=== PATIENT | female | born 1975 | race Caucasian/White ===

== ENCOUNTER 2023-03-07 12:04 | Emergency (ER) | payer BC, OTHER ==
[~2023-03-07] VITALS: Ht 162.6 cm; Wt 54.4 kg
[2023-03-07 12:12] VITALS: O2SAT 98
[2023-03-07] MEDS ORDERED: MOXI3DRO LEFTEYE (12:53)
[2023-03-07] MEDS ORDERED: SULF1TAB48 PO (12:53)
[2023-03-07] MEDS ORDERED: FLUC100T8 PO (13:04)
== END 2023-03-07 13:06 | disposition home or self-care (01) ==
LOC: ER 12:04
DX: L03.213 Periorbital cellulitis (principal); Z79.899 Other long term (current) drug therapy
CPT/HCPCS: A4663